=== PATIENT | male | born 1970 | race Hispanic/Latino ===

== ENCOUNTER 2018-03-17 18:17 | Emergency (ER) | payer MEDICARE ==
[2018-03-17] MEDS ORDERED: NACL 0.9% 500 ML 500 ML IV ONE (18:26)
[2018-03-17 19:01] LABS: Basophils % (Auto) 0.4 % (0.0-1.8); Eosinophils # (Auto) 0.3 K/mm3 (0.0-0.4); Eosinophils % (Auto) 2.4 % (0.0-4.3); Hematocrit 41.4 % (35.5-45.6); Hemoglobin 13.7 gm/dl (11.8-15.2); Lymphocytes # (Auto) 2.3 K/mm3 (1.2-5.4); Lymphocytes % (Auto) 20.6 % (13.4-35.0); Mean Corpuscular HGB Conc 33 % (32-34); Mean Corpuscular Hemoglobin 30 pg (28-32); Mean Corpuscular Volume 90 fl (84-94); Monocytes # (Auto) 0.8 K/mm3 (0.0-0.8); Monocytes % (Auto) 6.8 % (0.0-7.3); Platelet Count 211 K/mm3 (140-440); Red Blood Count 4.61 M/mm3 (3.65-5.03); Red Cell Distribution Width 13.9 % (13.2-15.2)
[2018-03-17 19:02] LABS: INR 0.84 (0.87-1.13)
[2018-03-17 19:04] LABS: Alanine Aminotransferase 18 units/L (7-56); Albumin 4.3 g/dL (3.9-5); BUN/Creatinine Ratio 13; Blood Urea Nitrogen 10 mg/dL (9-20); Calcium 8.6 mg/dL (8.4-10.2); Hemolysis Index 3
--- NOTE | 2018-03-17 19:36 | Emergency Department Report ---
ED Animal Bite HPI - General Chief Complaint: Wound/Laceration Stated Complaint: HAND SWOLLEN FROM CAT CLAW Time Seen by Provider: 03/17/18 19:35 Source: patient, family Mode of arrival: Ambulatory Limitations: No Limitations - History of Present Illness Initial Comments: 47-year-old Patient here with his who reports that he was scratched by a cat 2 days ago at his house. He said that the cat's there. Cat was not angry and they reported that they are about to get their cat immunized, but Does not have rabies. He said that he was playing with cats and cat accidentally scratched his left hand and over today. He got scratched on his palm on the left hand the back of his left hand on on his wrist and his hand has gotten increasing swelling and pain and redness over 2 days. Warts. Pain is 10 out of 10 and throbbing and aching. Bed rest but worse with movement. Patient has chronic back pain. The knee seen by a pain specialist and he takes hydrocodone , Lyrica, and tizanidine and he says that does not help his pain when he takes that for his back. Denies any respiratory distress or coughing. Denies any swelling of her neck. Denies any difficulties moving the fingers to right hand. Denies any radiation of pain to the wrist or forearm. Denies any abdominal pain, and he said he has some back pain but that is chronic from his chronic back pain. Tetanus vaccine is not up-to-date. He said he has been trying to clean the scratch paulo at home, but he does not seem to be an acute problem of a "it looks like it is getting worse. Denies any weakness or malaise. Complaint: animal bite, other (personal cat) Onset/Timin -: days(s) Left: Forearm (1. Cat scratch paulo to left forearm), Hand (cat scratch cruz with redness and swelling and pain to left hand) Animal: cat Animal Control Notified: Yes Description: household pet, immunizations unknown (family said that Has been living with them and Does not go outside and that they're about to get cat immunized. They said they are positive the cat does not have rabies), appeared well Mechanism: scratch, contact with mucous membr Severity scale (0 -10): 10 Context: playing with animal Associated Symptoms: erythema, fever, chills, other (redness and swelling to left hand. Pain to left hand). denies: discharge from wound, bleeding, rash, loss of consciousness, cough, headache, diaphoresis, shortness of breath Treatments Prior to Arrival: wound dressing(s) - Related Data Patient Tetanus UTD: No Home Medications Medication Instructions Recorded Confirmed Last Taken AtorvaSTATin [Lipitor] 40 mg PO QHS 03/17/18 03/17/18 Unknown Hydrocodon-Acetaminophn 10-325 10 mg PO DAILY 03/17/18 03/17/18 Unknown Omeprazole Magnesium [PriLOSEC] 40 mg PO DAILY 03/17/18 03/17/18 Unknown PARoxetine [Paxil] 30 mg PO DAILY 03/17/18 03/17/18 Unknown Topiramate [Topamax] 100 mg PO BID 03/17/18 03/17/18 Unknown lamoTRIgine [LaMICtal] 150 mg PO BID 03/17/18 03/17/18 Unknown tiZANidine [Zanaflex] 2 mg PO BID 03/17/18 03/17/18 Unknown Previous Rx's Medication Instructions Recorded Last Taken Type Pregabalin [Lyrica] 200 mg PO BID #60 capsule 10/06/15 Unknown Rx Azithromycin [Zithromax Z-OLIVERIO] 250 mg PO DAILY 5 Days #6 tab 03/17/18 Unknown Rx Ibuprofen [Motrin] 600 mg PO Q6H PRN #20 tablet 03/17/18 Unknown Rx Ondansetron [Zofran Odt] 4 mg PO Q6H PRN #20 tab.rapdis 03/17/18 Unknown Rx Allergies Allergy/AdvReac Type Severity Reaction Status Date / Time No Known Allergies Allergy Unverified 10/06/15 14:46 ED Review of Systems ROS: Stated complaint: HAND SWOLLEN FROM CAT CLAW Other details as noted in HPI Constitutional: denies: chills, fever, weakness Eyes: denies: eye pain, eye discharge, vision change ENT: denies: ear pain, throat pain, congestion Respiratory: denies: cough, shortness of breath, SOB with exertion, SOB at rest , stridor, wheezing Cardiovascular: denies: chest pain, palpitations, edema, syncope Gastrointestinal: denies: abdominal pain, nausea, vomiting, diarrhea, hematemesis, hematochezia Genitourinary: denies: dysuria, hematuria Musculoskeletal: back pain (pain which is chronic), joint swelling (left hand), arthralgia (left hand). denies: myalgia Skin: change in color, other (scratch cruz to left hand and left wrist). denies: rash, lesions Neurological: denies: headache, weakness, numbness, paresthesias, confusion Hematological/Lymphatic: denies: swollen glands ED Past Medical Hx - Past Medical History Previous Medical History?: Yes Hx GERD: Yes Hx Headaches / Migraines: Yes Hx Psychiatric Treatment: Yes (Bipolar) Additional medical history: Chronic pain,elevated cholesterol. Patient on pain management and needs on pain medication - Surgical History Past Surgical History?: Yes Additional Surgical History: Back surg, jaz in neck,T-8 surgery - Family History Family history: diabetes, hypertension - Social History Smoking Status: Current Every Day Smoker Substance Use Type: None - Medications Home Medications: Home Medications Medication Instructions Recorded Confirmed Last Taken Type Pregabalin [Lyrica] 200 mg PO BID #60 capsule 10/06/15 03/17/18 Unknown Rx AtorvaSTATin [Lipitor] 40 mg PO QHS 03/17/18 03/17/18 Unknown History Azithromycin [Zithromax Z-OLIVERIO] 250 mg PO DAILY 5 Days #6 tab 03/17/18 Unknown Rx Hydrocodon-Acetaminophn 10-325 10 mg PO DAILY 03/17/18 03/17/18 Unknown History Ibuprofen [Motrin] 600 mg PO Q6H PRN #20 tablet 03/17/18 Unknown Rx Omeprazole Magnesium [PriLOSEC] 40 mg PO DAILY 03/17/18 03/17/18 Unknown History Ondansetron [Zofran Odt] 4 mg PO Q6H PRN #20 tab.rapdis 03/17/18 Unknown Rx PARoxetine [Paxil] 30 mg PO DAILY 03/17/18 03/17/18 Unknown History Topiramate [Topamax] 100 mg PO BID 03/17/18 03/17/18 Unknown History lamoTRIgine [LaMICtal] 150 mg PO BID 03/17/18 03/17/18 Unknown History tiZANidine [Zanaflex] 2 mg PO BID 03/17/18 03/17/18 Unknown History ED Physical Exam - General Limitations: No Limitations General appearance: alert, in no apparent distress - Head Head exam: Present: atraumatic, normocephalic, normal inspection - Eye Eye exam: Present: normal appearance, PERRL, EOMI. Absent: conjunctival injection, periorbital swelling, periorbital tenderness Pupils: Present: normal accommodation - ENT ENT exam: Present: normal exam, normal orophraynx, mucous membranes moist, TM's normal bilaterally, normal external ear exam - Neck Neck exam: Present: normal inspection, full ROM, other (no C-spine tenderness). Absent: tenderness, meningismus, lymphadenopathy, thyromegaly - Respiratory Respiratory exam: Present: normal lung sounds bilaterally. Absent: respiratory distress, chest wall tenderness, accessory muscle use - Cardiovascular Cardiovascular Exam: Present: regular rate, normal rhythm, normal heart sounds. Absent: systolic murmur, diastolic murmur - GI/Abdominal GI/Abdominal exam: Present: soft, normal bowel sounds. Absent: distended, tenderness, guarding, rebound, rigid, organomegaly, mass, bruit, pulsatile mass - Extremities Exam Extremities exam: Present: tenderness (tenderness to the dorsal and palmar aspect of left hand including fingers.), normal capillary refill, joint swelling (left hand including fingers), other (no clubbing, cyanosis or edema. +2 pulses to all extremities and no neurovascular compromise except for left hand with swelling, tenderness to palpate and scratch paulo to dorsal and palmar side of the left hand and small scratch paulo to left wrist without any erythema. Patient with erythema to dorsal and plantar aspect of the left hand. No signs of tendinitis.). Absent: pedal edema, calf tenderness - Expanded Upper Extremity Exam Left General: Present: other (scratch cruz left hand). Absent: normal inspection Shoulder Exam: Present: normal inspection, full ROM. Absent: tenderness, swelling, abrasion, laceration, ecchymosis, deformity, crepidus, dislocation, erythema, tenderness over AC joint Upper Arm exam: Present: normal inspection, full ROM. Absent: tenderness, swelling, abrasion, laceration, ecchymosis, deformity, crepidus, dislocation, erythema Elbow exam: Present: normal inspection, full ROM. Absent: tenderness, swelling , abrasion, laceration, ecchymosis, deformity, crepidus, dislocation, erythema, effusion, pain w/ pronation/supination, tenderness over radial head Forearm Wrist exam: Present: full ROM, other (small scratch paulo to left wrist. No erythema noted. Full range of motion to left wrist.). Absent: tenderness , swelling, abrasion, laceration, ecchymosis, deformity, crepidus, dislocation, erythema, tenderness over anatomical snuff box, pain with axial thumb loading Hand Wrist exam: Present: full ROM (full range of motion to left hand and fingers but patient with pain with movement.), tenderness (left hand and fingers ), swelling (left hand dorsal and palmar side and fingers left hand), erythema, other (patient with scratch cruz to dorsal and palmar side of left hand that is already healing. No drainage noted). Absent: normal inspection, abrasion, laceration, ecchymosis, deformity, crepidus, dislocation, amputation, nail avulsion, subungual hematoma Neuro motor exam: Present: wrist extension intact, thumb opposition intact, thumb IP flexion intact, thumb adduction intact, fingers 2-5 abduction intact Neurosensory exam: Present: 2-point discrimination, radial nerve intact, ulnar nerve intact, median nerve intact Vascular: Present: normal capillary refill, radial pulse, brachial pulse, ulnar pulse. Absent: vascular compromise, Pallo, pulse deficit radial art, pulse deficit ulnar art, pulse deficit brachial art - Back Exam Back exam: Present: normal inspection, full ROM, other (ambulates without any difficulties). Absent: tenderness, CVA tenderness (R), CVA tenderness (L), muscle spasm, paraspinal tenderness, vertebral tenderness, rash noted - Neurological Exam Neurological exam: Present: alert, oriented X3, normal gait, reflexes normal, other (no focal neurological deficit). Absent: motor sensory deficit - Psychiatric Psychiatric exam: Present: normal affect, normal mood - Skin Skin exam: Present: warm, dry, erythema (left hand), other (Tania cruz to left hand palm and dorsal aspect of left hand and isolated scratch paulo to left wrist.). Absent: intact, normal color, cyanosis, diaphoretic, urticaria, vesicles, petechiae, pallor, abrasion - Expanded Skin Exam Expanded Type of lesion: Present: other (scratch cruz) Distribution of rash: LUE (left hand and fingers) Description of rash: Present: tenderness, erythematous, swelling. Absent: macular, papular, vesicular, blisters, confluent, bullous, petechial, purpuic, urticarial, crusting, discharge, fluctuant, indurated 1 - Patient with erythema to the left dorsal aspect and palmar aspect of left hand with 2 scratch cruz to left palm and minimal scratch paulo to left dorsal aspect of hand . Tender to palpate, no drainage. Full range of motion. No signs of tendinitis. Tetanus vaccine updated 2 - One small scratch paulo to left wrist without any erythema or drainage. Nontender to palpate and no swelling. Patient has full range of motion to left wrist. - Other Other exam information: Lymphatic system: No lymphedema past the noted to the neck, chest wall, axilla. ED Course Vital Signs 03/17/18 03/17/18 03/17/18 18:20 22:48 23:15 Temperature 99.8 F H 97.7 F Pulse Rate 92 H 69 85 Respiratory 18 17 16 Rate Blood Pressure 104/68 Blood Pressure 94/59 105/53 [Right] O2 Sat by Pulse 97 98 99 Oximetry - Reevaluation(s) Reevaluation #1: 03/17/18 20:50 Patient given normal saline bolus 1 L, Boostrix 0.5 mL to update tetanus, Percocet 5/325 2 tablets by mouth for pain to left hand, azithromycin 500 mg IV for cat scratch infection, he was given ibuprofen 800 mg by mouth prior to Percocet. He has low-grade fever. 1 to left hand dorsal and palmar area soaked in iodine and normal saline, cleansed with normal saline and irrigated with normal saline. Neosporin ointment placed a site followed by sterile gauze dressing. Reevaluation #2: 03/17/18 21:52 Patient studies feeling better. He received all his medication. Pain is better. He did not have any adverse reaction from medication. He is able to tolerate oral liquids in emergency room. Reevaluation #3: 03/17/18 23:24 Patient is stable and he said he feels better. Left hand reexamined and patient able to move his fingers of his left hand and use thumb to touch all fingers. No rigidity or signs of tendinitis. He still have some redness but overall it looks better and he said he feels better. Patient is ready to be discharged home. Patient given potassium 40 mEq 1 by mouth for potassium of 3.4. - Procedure Description Procedures done: wound care. Patient left hand soaked in saline and iodine and irrigated at scratch cruz site to palm and dorsal aspect of hand and wrist with normal saline extensively. Neosporin ointment placed followed by a dry nonadhesive stressing. Patient pulses are 2+ and bounding. Tetanus vaccine updated. Critical care attestation.: If time is entered above; I have spent that time in minutes in the direct care of this critically ill patient, excluding procedure time. ED Disposition Clinical Impression: Arthralgia of left hand, Fever in adult, Hypokalemia Cat scratch of left hand with infection Qualifiers: Encounter type: initial encounter Qualified Code(s): S60.512A - Abrasion of left hand, initial encounter Disposition: TO HOME OR SELFCARE Is pt being admited?: No Does the pt Need Aspirin: No Condition: Stable Instructions: Cellulitis (ED), Fever in Adults (ED), Hypokalemia (ED), Cat Scratch Disease (ED), Arthralgia (ED) Additional Instructions: Please return to the emergency room in 2 days for reevaluation of left hand from cat scratch. You can return sooner if area increased in redness, increase in pain, streak to the wrist and forearm, numbness or tingling, restriction in movement of wrist, hand and fingers of left hand, drainage and swelling of hand. Dizziness. Take antibiotic as prescribed You can take home pain medication Take Motrin every 6 hours 2 days and then as needed to keep fever down and please increase her fluid intake Please follow up with her primary care physician tomorrow Prescriptions: Azithromycin [Zithromax Z-OLIVERIO] 250 mg PO DAILY 5 Days #6 tab Ibuprofen [Motrin] 600 mg PO Q6H PRN #20 tablet PRN Reason: fever and/or pain Ondansetron [Zofran Odt] 4 mg PO Q6H PRN #20 tab.rapdis PRN Reason: nausea and/or vomiting Referrals: PRIMARY CARE, [Primary Care Provider] - 03/18/18 (Please follow-up with your primary care physician Dr. Willson in [place] tomorrow) please return to the, emergency room in 2 days [Other] - 3-5 Days (For reevaluation of cellulitis of left hand from cat scratch.) Forms: Work/School Release Form(ED) ED Medical Decision Making - Lab Data Result diagrams: 03/17/18 18:38 03/17/18 18:38 Lab Results 03/17/18 03/17/18 03/17/18 Range/Units 18:38 18:38 18:38 WBC 11.3 H (4.5-11.0) K/mm3 RBC 4.61 (3.65-5.03) M/mm3 Hgb 13.7 (11.8-15.2) gm/dl Hct 41.4 (35.5-45.6) % MCV 90 (84-94) fl MCH 30 (28-32) pg MCHC 33 (32-34) % RDW 13.9 (13.2-15.2) % Plt Count 211 (140-440) K/mm3 Lymph % (Auto) 20.6 (13.4-35.0) % Runnels % (Auto) 6.8 (0.0-7.3) % Eos % (Auto) 2.4 (0.0-4.3) % Baso % (Auto) 0.4 (0.0-1.8) % Lymph # 2.3 (1.2-5.4) K/mm3 Runnels # 0.8 (0.0-0.8) K/mm3 Eos # 0.3 (0.0-0.4) K/mm3 Baso # 0.0 (0.0-0.1) K/mm3 Seg Neutrophils % 69.8 (40.0-70.0) % Seg Neutrophils # 7.9 H (1.8-7.7) K/mm3 PT 11.9 L (12.2-14.9) Sec. INR 0.84 L (0.87-1.13) VBG pH (7.320-7.420) Sodium 141 (137-145) mmol/L Potassium 3.4 L (3.6-5.0) mmol/L Chloride 105.6 (98-107) mmol/L Carbon Dioxide 22 (22-30) mmol/L Anion Gap 17 mmol/L BUN 10 (9-20) mg/dL Creatinine 0.8 (0.8-1.5) mg/dL Estimated GFR > 60 ml/min BUN/Creatinine Ratio 13 % Glucose 113 H (75-100) mg/dL Lactic Acid (0.7-2.0) mmol/L Calcium 8.6 (8.4-10.2) mg/dL Total Bilirubin 0.40 (0.1-1.2) mg/dL AST 16 (5-40) units/L ALT 18 (7-56) units/L Alkaline Phosphatase 74 (35-129) units/L Total Protein 6.9 (6.3-8.2) g/dL Albumin 4.3 (3.9-5) g/dL Albumin/Globulin Ratio 1.7 % Urine Color (Yellow) Urine Turbidity (Clear) Urine pH (5.0-7.0) Ur Specific Alpine (1.003-1.030) Urine Protein (Negative) mg/dL Urine Glucose (UA) (Negative) mg/dL Urine Ketones (Negative) mg/dL Urine Blood (Negative) Urine Nitrite (Negative) Ur Reducing Substances Urine Bilirubin (Negative) Urine Ictotest Urine Urobilinogen (<2.0) mg/dL Ur Leukocyte Esterase (Negative) Urine WBC (Auto) (0.0-6.0) /HPF Urine RBC (Auto) (0.0-6.0) /HPF Urine Bacteria (Auto) (Negative) /HPF Urine Mucus /HPF 03/17/18 03/17/18 03/17/18 Range/Units 18:38 18:38 19:34 WBC (4.5-11.0) K/mm3 RBC (3.65-5.03) M/mm3 Hgb (11.8-15.2) gm/dl Hct (35.5-45.6) % MCV (84-94) fl MCH (28-32) pg MCHC (32-34) % RDW (13.2-15.2) % Plt Count (140-440) K/mm3 Lymph % (Auto) (13.4-35.0) % Runnels % (Auto) (0.0-7.3) % Eos % (Auto) (0.0-4.3) % Baso % (Auto) (0.0-1.8) % Lymph # (1.2-5.4) K/mm3 Runnels # (0.0-0.8) K/mm3 Eos # (0.0-0.4) K/mm3 Baso # (0.0-0.1) K/mm3 Seg Neutrophils % (40.0-70.0) % Seg Neutrophils # (1.8-7.7) K/mm3 PT (12.2-14.9) Sec. INR (0.87-1.13) VBG pH 7.381 (7.320-7.420) Sodium (137-145) mmol/L Potassium (3.6-5.0) mmol/L Chloride (98-107) mmol/L Carbon Dioxide (22-30) mmol/L Anion Gap mmol/L BUN (9-20) mg/dL Creatinine (0.8-1.5) mg/dL Estimated GFR ml/min BUN/Creatinine Ratio % Glucose (75-100) mg/dL Lactic Acid 1.30 (0.7-2.0) mmol/L Calcium (8.4-10.2) mg/dL Total Bilirubin (0.1-1.2) mg/dL AST (5-40) units/L ALT (7-56) units/L Alkaline Phosphatase (35-129) units/L Total Protein (6.3-8.2) g/dL Albumin (3.9-5) g/dL Albumin/Globulin Ratio % Urine Color Yellow (Yellow) Urine Turbidity Clear (Clear) Urine pH 7.0 (5.0-7.0) Ur Specific Alpine 1.020 (1.003-1.030) Urine Protein <15 mg/dl (Negative) mg/dL Urine Glucose (UA) Neg (Negative) mg/dL Urine Ketones Neg (Negative) mg/dL Urine Blood Neg (Negative) Urine Nitrite Neg (Negative) Ur Reducing Substances Not Reportable Urine Bilirubin Neg (Negative) Urine Ictotest Not Reportable Urine Urobilinogen 4.0 (<2.0) mg/dL Ur Leukocyte Esterase Neg (Negative) Urine WBC (Auto) 2.0 (0.0-6.0) /HPF Urine RBC (Auto) 2.0 (0.0-6.0) /HPF Urine Bacteria (Auto) 1+ (Negative) /HPF Urine Mucus Few /HPF 06/24/18 Range/Units 21:39 WBC (4.5-11.0) K/mm3 RBC (3.65-5.03) M/mm3 Hgb (11.8-15.2) gm/dl Hct (35.5-45.6) % MCV (84-94) fl MCH (28-32) pg MCHC (32-34) % RDW (13.2-15.2) % Plt Count (140-440) K/mm3 Lymph % (Auto) (13.4-35.0) % Runnels % (Auto) (0.0-7.3) % Eos % (Auto) (0.0-4.3) % Baso % (Auto) (0.0-1.8) % Lymph # (1.2-5.4) K/mm3 Runnels # (0.0-0.8) K/mm3 Eos # (0.0-0.4) K/mm3 Baso # (0.0-0.1) K/mm3 Seg Neutrophils % (40.0-70.0) % Seg Neutrophils # (1.8-7.7) K/mm3 PT (12.2-14.9) Sec. INR (0.87-1.13) VBG pH (7.320-7.420) Sodium (137-145) mmol/L Potassium (3.6-5.0) mmol/L Chloride (98-107) mmol/L Carbon Dioxide (22-30) mmol/L Anion Gap mmol/L BUN (9-20) mg/dL Creatinine (0.8-1.5) mg/dL Estimated GFR ml/min BUN/Creatinine Ratio % Glucose (75-100) mg/dL Lactic Acid 0.70 (0.7-2.0) mmol/L Calcium (8.4-10.2) mg/dL Total Bilirubin (0.1-1.2) mg/dL AST (5-40) units/L ALT (7-56) units/L Alkaline Phosphatase (35-129) units/L Total Protein (6.3-8.2) g/dL Albumin (3.9-5) g/dL Albumin/Globulin Ratio % Urine Color (Yellow) Urine Turbidity (Clear) Urine pH (5.0-7.0) Ur Specific Alpine (1.003-1.030) Urine Protein (Negative) mg/dL Urine Glucose (UA) (Negative) mg/dL Urine Ketones (Negative) mg/dL Urine Blood (Negative) Urine Nitrite (Negative) Ur Reducing Substances Urine Bilirubin (Negative) Urine Ictotest Urine Urobilinogen (<2.0) mg/dL Ur Leukocyte Esterase (Negative) Urine WBC (Auto) (0.0-6.0) /HPF Urine RBC (Auto) (0.0-6.0) /HPF Urine Bacteria (Auto) (Negative) /HPF Urine Mucus /HPF Blood cultures are pending - EKG Data -: EKG Interpreted by Me (interpreted by) EKG shows normal: sinus rhythm Rate: normal (68 bpm) - EKG Data Interpretation: no acute changes, normal EKG - Radiology Data Radiology results: report reviewed X-ray three-view left hand dictated by radiologist and report reviewed by myself. reveals no acute bony abnormality. Patient: JOHANA CLAY MR#: [id number] : 1970 Acct:[id number] Age/Sex: 47 / M ADM Date: 03/17/18 Loc: ED Attending Dr: Ordering Physician: KHALIF LUA Date of Service: 03/17/18 Procedure(s): XR hand 3+V LT Accession Number(s): [id number] cc: KHALIF LUA Fluoro Time In Minutes: FINAL REPORT EXAM: XR HAND 3+V LT HISTORY: cat scratch lt hand. Pain and swelling. COMPARISON: None available. FINDINGS: Three views of left hand obtained. No radiopaque foreign body or focal bony erosive changes. Bony structures are intact. Joint spaces are preserved. No acute fracture dislocation. IMPRESSION: No acute bony abnormality. Transcribed By: LMA Dictated By: CHARANJIT SUH MD Electronically Authenticated By: CHARANJIT SUH MD Signed Date/Time: 03/17/182101 Patient: JOHANA CLAY MR#: [id number] : 1970 Acct:[id number] Age/Sex: 47 / M ADM Date: 03/17/18 Loc: ED Attending Dr: Ordering Physician: BOY CORONADO MD Date of Service: 03/17/18 Procedure(s): XR chest 1V ap Accession Number(s): [id number] cc: BOY CORONADO MD Fluoro Time In Minutes: FINAL REPORT EXAM: XR CHEST 1V AP HISTORY: possible Sepsis COMPARISON: None available. FINDINGS: Frontal view(s) of the chest obtained. Cardiac silhouette within normal limits. No gross consolidation or effusion. No pneumothorax. IMPRESSION: No grossly acute findings. Transcribed By: LMTee Dictated By: CHARANJIT SUH MD Electronically Authenticated By: CHARANJIT SUH MD Signed Date/Time: 03/17/182017 DD/ 17 TD/TT: 03/17/182017 - Medical Decision Making ED course This is a 47-year-old male who was bitten by his own cat 2 days ago at home while he was playing with them. He came into the emergency room requesting help because he said he is to try to take care of scratch cruz to his left palm and back of his left hand and also to his left wrist. He reports the left wrist. This findings, I have any pain or restriction in movement, but right hand is very painful and is increase in pain and he has been taking in his medication at home that he has been taking for chronic pain for his back, which helped. Patient reports that the redness is getting worse over the last 2 days and he has increasing pain with moving his fingers and hand. He reports fever and chills and denies any respiratory problems are difficult to breathe, chest pain, difficulty swallowing, swollen. The tongue or neck. Denies any malaise or weakness. Patient states that he is just here to be evaluated. His tetanus shot is up-to-date and he said THAT he is not worried about rabies. He said he call animal control, but they did not show up as yet and says that someone told him to do that. I saw and examined this patient and he has very superficial scratch cruz to include 2 to left palm, minimal to dorsal aspect of left hand and one to left wrist, which is healed and nontender to palpate without any erythema. He has redness from his fingers of his left hand down to the proximal hand of his left hand. He is able to move his hand, unable to use his with movement of his fingers and hand, but no radiation of pain. He has 2+ and bounding ulnar and radial pulses bilaterally. No signs of pallor. Capillary refill is less than 3 seconds. Patient with fever, but other vital signs are stable. Patient pain and fevers controlled. CBC with minor elevation in white count, otherwise stable, CMP, stable, except he has potassium of 3.4, which was repleted 1 in emergency room, urinalysis normal values, lactic acid 2 is normal, venous pH is normal.PT/INR minimal abnormalities. A chest x-ray done and also x-ray of his left hand which was dictated by radiologist's and report reviewed by myself and there are no acute abnormalities. Laboratory results and x-ray results was discussed. The patient along with diagnosis and he voiced understanding. A/P 1: CAT scratch -tetanus vaccine is updated, he was given 0.5 mL of strokes. IM , patient said his cat did not have rabies. The cat is [place]der[place] the time and the cat's temperament is normal and he does not feel like he needs rabies vaccination, so it was left with that. I did tell him that he needs to go ahead and take the cat to get vaccinated. done. Scratch wounds were soaked, irrigated, topical antibiotic, Neosporin applied to site and sterile dry dressing placed. Aside please refer to wound care for detail. 2: cellulitis of left hand and fingers status post cat bite: Patient given patient was treated as he has cat scratch disease, although he did not have any lymphadenopathy. X-ray of chest is normal and no mention of lymphadenopathy. And no lymphadenopathy found on exam. He did have a fever and significant redness and swelling to his hand. He was given a azithromycin 500 mg IV, normal saline 1 L.. Patient is able to drink liquids without any difficulties and he will be sent home on Z-Oliverio, which is antibiotic of choice for cat scratch disease. 3: Arthralgia left hand : Oxycodone 5/return 25 mg 2 tabs by mouth in emergency room, which relieved this pain. I discussed with him that he can continue to take his pain medications as prescribed by his pain doctor that he is taking for his back, which will help his pain, but I cannot add any more medication except for Motrin. X-ray of right hand shows no acute bony abnormalities. 4: Fever in adult patient-Motrin 800 mg by mouth given and his fever is better and was sent home on Motrin which will help his fever and his pain. Lactic acid normal, and white count is mildly elevated at 11+. 5: Hypokalemia-test is 3.4, and patient was repleted with 40 mg of potassium 1 dose and told to increase his fluid intake to include Gatorade and eat bananas to prevent potassium from decreasing. Patient educated on wound care and rabies vaccination. Patient educated on diagnosis, medication and treatment plan and need to follow- up status cat scratch to left hand with fever and cellulitis. I told him to return to the emergency room in 2 days for reevaluation, but if symptoms worsen , to includes increased redness, swelling, streaking going up his forearm, difficulty moving his fingers to his left hand, wrist or hand, increasing pain that is not controlled with medication, fever or chills, field of weakness and dizziness to return to the emergency room immediately. Otherwise, return in 2 days for recheck. He voiced understanding of need to return to the emergency room and circumstances mention above . Patient discharged home in stable condition, vital signs are stable he's afebrile. He said he felt better pain is better. He is given prescription for Motrin, and Z-Oliverio. Instructed to follow up with primary care physician in days and if he does not have a primary care physician to follow-up at [facility]. Patient is nontoxic in appearance and ambulates difficulties. He is urinating and drinking fluid well. He is to his and discharged home from emergency room to return in 2 days or sooner as discussed. He voiced understanding and discharged home in stable condition - Differential Diagnosis sepsis, osteomyelitiscellulitis, cat scratch disease, minor cellulitis
[2018-03-17] MEDS ORDERED: ZITHROMAX 500 MG in NACL 0.9% 250ML 250 ML IV ONE ×2 (19:45→20:12)
[2018-03-17 19:46] LABS: Mucus,Urine FEW /HPF
[2018-03-17 19:51] LABS: Bacteria,Urine 1+ /HPF (Negative); Bilirubin,Urine NEG (Negative); Blood,Urine NEG (Negative); Color,Urine Yellow (Yellow); Protein,Urine <15 mg/dL mg/dL (Negative)
[2018-03-17] MEDS ORDERED: NACL 0.9% 1000 ML 1,000 ML IV ONE (19:54)
[2018-03-17] MEDS ORDERED: MOTRIN PO ONE (19:55)
[2018-03-17] MEDS ORDERED: BOOSTRIX IM ONE (19:55)
[2018-03-17] MEDS ORDERED: TRIPLE ANTIBIOTIC TP ONE (19:55)
[2018-03-17] MEDS ORDERED: PERCOCET 5/325 PO ONE (19:55)
--- NOTE | 2018-03-17 20:22 | XRay Report ---
FINAL REPORT EXAM: XR CHEST 1V AP HISTORY: possible Sepsis COMPARISON: None available. FINDINGS: Frontal view(s) of the chest obtained. Cardiac silhouette within normal limits. No gross consolidation or effusion. No pneumothorax. IMPRESSION: No grossly acute findings.
--- NOTE | 2018-03-17 21:07 | XRay Report ---
FINAL REPORT EXAM: XR HAND 3+V LT HISTORY: cat scratch lt hand. Pain and swelling. COMPARISON: None available. FINDINGS: Three views of left hand obtained. No radiopaque foreign body or focal bony erosive changes. Bony structures are intact. Joint spaces are preserved. No acute fracture dislocation. IMPRESSION: No acute bony abnormality.
[2018-03-17] MEDS ORDERED: K-DUR PO ONE (23:09)
[2018-03-17 23:16] VITALS: BP 105/53
== END 2018-03-17 23:54 | disposition home or self-care (01) ==
LOC: ED 18:17
DX: S60.512A Abrasion of left hand, initial encounter (principal); E87.6 Hypokalemia; R50.9 Fever, unspecified; M79.642 Pain in left hand; F31.9 Bipolar disorder, unspecified; G43.909 Migraine, unspecified, not intractable, without status migrainosus; G89.29 Other chronic pain; F17.200 Nicotine dependence, unspecified, uncomplicated; W55.01XA Bitten by cat, initial encounter; Y93.89 Activity, other specified; Y99.8 Other external cause status; Y92.89 Other specified places as the place of occurrence of the external cause
CPT/HCPCS: 36415; 71045; 73130; 80053; 81001; 82140; 82805; 85025; 85610; 87040; 87086; 90471; 90715; 93005; 93010; 96365; 99285; J0456; J7030; J7040; J7050; A6250

== ENCOUNTER 2022-02-23 14:10 | Emergency (ER) | payer MEDICARE ==
[2022-02-23] MEDS ORDERED: SODIUM CHLORIDE 0.9% 1000 ML 1,000 ML IV ONE (15:18)
--- NOTE | 2022-02-23 15:44 | XRay Report ---
CHEST 1 VIEW 02/23/2022 3:32 PM INDICATION / CLINICAL INFORMATION: Syncope. COMPARISON: 03/17/2018 FINDINGS: SUPPORT DEVICES: None. HEART / MEDIASTINUM: No significant abnormality. LUNGS / PLEURA: No significant pulmonary or pleural abnormality. No pneumothorax. ADDITIONAL FINDINGS: No significant additional findings. IMPRESSION: 1. No acute findings. Signer Name: Pancho Ibrahim MD Signed: 02/23/2022 3:40 PM Workstation Name: [id number]
[2022-02-23 15:59] LABS: Amphetamine Screen,Urine Negative; Benzodiazepines Screen,Urine Negative; Cannabinoid Screen,Urine Negative; Cocaine Screen,Urine Negative; Methadone Screen,Urine Negative; Opiate Screen,Urine Negative
[2022-02-23 16:02] LABS: Color,Urine Yellow (Yellow)
[2022-02-23 16:03] LABS: Bilirubin,Urine Negative (Negative)
[2022-02-23 16:05] LABS: Blood,Urine Negative (Negative)
[2022-02-23 16:14] LABS: Bacteria,Urine 4+ /HPF (Negative); Hyaline Casts,Urine 11 /LPF; Mucus,Urine 3+ /HPF
[2022-02-23 17:08] LABS: Basophils % (Auto) 0.2 % (0.0-1.8); Eosinophils # (Auto) 0.1 K/mm3 (0.0-0.4); Eosinophils % (Auto) 0.6 % (0.0-4.3); Hematocrit 40.9 % (35.5-45.6); Lymphocytes # (Auto) 1.9 K/mm3 (1.2-5.4); Lymphocytes % (Auto) 14.9 % (13.4-35.0); Mean Corpuscular HGB Conc 34 % (32-34); Mean Corpuscular Volume 93 fl (84-94); Monocytes # (Auto) 0.6 K/mm3 (0.0-0.8); Platelet Count 195 K/mm3 (140-440); Red Blood Count 4.42 M/mm3 (3.65-5.03); Red Cell Distribution Width 15.3 % (13.2-15.2)
[2022-02-23 17:25] VITALS: BP 108/68
[2022-02-23 17:25] LABS: INR 0.95 (0.87-1.13)
[2022-02-23 17:28] LABS: C-Reactive Protein 0.3 mg/dL (0.00-1.30); Creatine Kinase MB < 1.0 ng/mL (0.0-4.0)
[2022-02-23 17:34] LABS: Alanine Aminotransferase 28 units/L (7-56); Albumin 4.1 g/dL (3.9-5); BUN/Creatinine Ratio 9; Blood Urea Nitrogen 9 mg/dL (9-20); Calcium 8.5 mg/dL (8.4-10.2); Hemolysis Index 4
--- NOTE | 2022-02-23 18:36 | Emergency Department Report ---
ED Dizziness HPI - General Chief Complaint: Syncope Stated Complaint: SYNCOPE/HYPOTENSION Time Seen by Provider: 02/23/22 15:17 Source: EMS Mode of arrival: Stretcher Limitations: No Limitations - History of Present Illness Initial Comments: EMS reports 2 syncopal episodes 2nd witnessed by family - backwards fall pt has back pain pt states he was staying n hot weather didn;t drink enough water no sob no chest pain -: Sudden Timing: unsure Description: lightheadedness History of Same: No History of Trauma: No - Related Data Home Medications Medication Instructions Recorded Confirmed Last Taken Topiramate [Topamax] 100 mg PO QDAY 03/17/18 03/17/18 1 Day Ago ~02/22/22 Citalopram 20 mg PO QAM 02/23/22 02/23/22 1 Day Ago ~02/22/22 Quetiapine Fumarate 100 mg PO QAM 02/23/22 02/23/22 1 Day Ago ~02/22/22 Quetiapine Fumarate 300 mg PO QHS 02/23/22 02/23/22 1 Day Ago ~02/22/22 Allergies Allergy/AdvReac Type Severity Reaction Status Date / Time No Known Allergies Allergy Verified 02/23/22 15:31 ED Review of Systems ROS: Stated complaint: SYNCOPE/HYPOTENSION Other details as noted in HPI Constitutional: denies: chills, fever Eyes: denies: eye pain, eye discharge, vision change ENT: denies: ear pain, throat pain Respiratory: denies: cough, shortness of breath, wheezing Cardiovascular: denies: chest pain, palpitations Endocrine: no symptoms reported Gastrointestinal: denies: abdominal pain, nausea, diarrhea Genitourinary: denies: urgency, dysuria Musculoskeletal: denies: back pain, joint swelling, arthralgia Skin: denies: rash, lesions Neurological: denies: headache, weakness, paresthesias Psychiatric: denies: anxiety, depression Hematological/Lymphatic: denies: easy bleeding, easy bruising ED Past Medical Hx - Past Medical History Hx GERD: Yes Hx Headaches / Migraines: Yes Hx Psychiatric Treatment: Yes (Bipolar) Additional medical history: Chronic pain,elevated cholesterol. Patient on pain management and needs on pain medication - Surgical History Additional Surgical History: Back surg, jaz in neck,T-8 surgery - Social History Smoking Status: Current Every Day Smoker Substance Use Type: None - Medications Home Medications: Home Medications Medication Instructions Recorded Confirmed Last Taken Type Topiramate [Topamax] 100 mg PO QDAY 03/17/18 03/17/18 1 Day Ago History ~02/22/22 Citalopram 20 mg PO QAM 02/23/22 02/23/22 1 Day Ago History ~02/22/22 Quetiapine Fumarate 100 mg PO QAM 02/23/22 02/23/22 1 Day Ago History ~02/22/22 Quetiapine Fumarate 300 mg PO QHS 02/23/22 02/23/22 1 Day Ago History ~02/22/22 ED Physical Exam - General Limitations: No Limitations General appearance: alert, in no apparent distress - Head Head exam: Present: atraumatic, normocephalic - Eye Eye exam: Present: normal appearance - ENT ENT exam: Present: mucous membranes moist - Neck Neck exam: Present: normal inspection - Respiratory Respiratory exam: Present: normal lung sounds bilaterally. Absent: respiratory distress - Cardiovascular Cardiovascular Exam: Present: regular rate, normal rhythm. Absent: systolic murmur, diastolic murmur, rubs, gallop - GI/Abdominal GI/Abdominal exam: Present: soft, normal bowel sounds - Rectal Rectal exam: Present: deferred - Extremities Exam Extremities exam: Present: normal inspection - Back Exam Back exam: Present: normal inspection - Neurological Exam Neurological exam: Present: alert, oriented X3 - Psychiatric Psychiatric exam: Present: normal affect, normal mood - Skin Skin exam: Present: warm, dry, intact, normal color. Absent: rash ED Course Vital Signs 02/23/22 02/23/22 02/23/22 14:20 14:46 15:00 Pulse Rate 60 Respiratory 16 Rate Blood Pressure 77/52 Blood Pressure 110/60 [Right] O2 Sat by Pulse 96 95 95 Oximetry 02/23/22 02/23/22 02/23/22 15:16 15:30 15:46 Pulse Rate Respiratory Rate Blood Pressure 88/46 83/37 83/37 Blood Pressure [Right] O2 Sat by Pulse 98 97 100 Oximetry 02/23/22 02/23/22 02/23/22 16:00 16:16 16:30 Pulse Rate Respiratory Rate Blood Pressure 95/53 92/56 92/56 Blood Pressure [Right] O2 Sat by Pulse 100 100 100 Oximetry 02/23/22 02/23/22 02/23/22 16:46 17:00 17:16 Pulse Rate Respiratory Rate Blood Pressure 92/56 95/53 108/68 Blood Pressure [Right] O2 Sat by Pulse 99 100 Oximetry ED Medical Decision Making - Lab Data Result diagrams: 02/23/22 16:15 02/23/22 16:15 - Radiology Data Radiology results: report reviewed, image reviewed - Medical Decision Making work up unremarkable fluids given fels better BP is better Critical care attestation.: If time is entered above; I have spent that time in minutes in the direct care of this critically ill patient, excluding procedure time. ED Disposition Clinical Impression: Dehydration, Dizziness Disposition: 01 HOME / SELF CARE / HOMELESS Is pt being admited?: No Does the pt Need Aspirin: No Condition: Stable Instructions: Dehydration, Adult, [id number], Dizziness, [id number] Referrals: YULIYA GOODWIN [Other] - 3-5 Days
--- NOTE | 2022-02-24 08:56 | Electrocardiograph Report ---
[facility] Test Date: 2022-02-23 Test Time: 15:39:30 Pat Name: JOHANA CLAY Department: Room: Gender: M Social Work Manager: DAIN : 1970 Requested By: YULIYA KIDD Order Number: [id number] Reading MD: John Whiteside Measurements Intervals [place] Rate: 55 P: 69 MI: 182 QRS: 73 QRSD: 88 T: 62 QT: 480 QTc: 458 Interpretive Statements Sinus rhythm ST elev, probable normal early repol pattern No previous ECG available for comparison Electronically Signed On 02-24-2022 8:56:20 EDT by John Whiteside
== END 2022-02-23 19:02 | disposition home or self-care (01) ==
LOC: ED 14:10
DX: E86.0 Dehydration (principal); R42 Dizziness and giddiness; F17.200 Nicotine dependence, unspecified, uncomplicated; F31.9 Bipolar disorder, unspecified
CPT/HCPCS: 36415; 71045; 80053; 80307; 81001; 82550; 82553; 83735; 84484; 85025; 85610; 86140; 93005; 96360; 96361; 99284; J7030